=== PATIENT | male | born 1990 | race Caucasian/White ===

== ENCOUNTER 2018-12-25 04:20 | Emergency (ER) | payer MEDICAID, OTHER ==
[2018-12-25] MEDS ORDERED: Albuterol/Ipratropium NEB.SOL* Albuterol 2.5 MG/Ipratropium 0.5 MG 3 ML INH ONE (04:32)
[2018-12-25] MEDS ORDERED: predniSONE TAB* 20 MG PO ONE (04:35)
--- NOTE | 2018-12-25 04:39 | ED ---
Shortness of Breath - HPI Summary HPI Summary: This pt is a 28 Y/O M presenting to [facility] with a CC of SOB since 0000 12/25/18. He states that he has a known allergy to cat dander and was exposed to a cat on 12/24/18. He states that he was wheezing earlier but states that he is currently having difficulty breathing and stated that he has a non-productive cough. He denies any fever, CP, N/V, chills, headaches, substance abuse, and sore throat. He stated no alleviating factor but reported that he took allergy medications without relief. He has a PMHx of cat allergies and denies any asthma. - History of Current Complaint Chief Complaint: EDShortnessOfBreath Time Seen by Provider: 12/25/18 04:28 Hx Obtained From: Patient Onset/Duration: Sudden Onset, Lasting Hours - 4, Still Present Timing: Constant Current Severity: Moderate Dyspnea At: Rest Aggravating Factors: Allergens - cat dander Alleviating Factors: Nothing Associated Signs & Symptoms: Negative - fever, CP, N/V, chills, headaches, substance abuse, and sore throat., Cough (Nonproductive), Wheezing - Allergy/Home Medications Allergies/Adverse Reactions: Allergies Allergy/AdvReac Type Severity Reaction Status Date / Time cat dander Allergy Unknown Verified 12/25/18 04:25 Reaction Details PMH/Surg Hx/FS Hx/Imm Hx Previously Healthy: Yes Endocrine/Hematology History: Denies: Hx Anticoagulant Therapy Cardiovascular History: Denies: Hx Hypertension Infectious Disease History: No Infectious Disease History: Denies: Traveled Outside the [place] in Last 30 Days - Family History Known Family History: Negative: Diabetes - Social History Alcohol Use: Rare Hx Substance Use: No Substance Use Type: Reports: None Hx Tobacco Use: No Smoking Status (MU): Never Smoked Tobacco Review of Systems Positive: Other - NEGATIVE: substance abuse. Negative: Fever, Chills Negative: Sore Throat Negative: Chest Pain Positive: Shortness Of Breath, Cough - non-productive Negative: Vomiting, Nausea Negative: Headache All Other Systems Reviewed And Are Negative: Yes Physical Exam - Summary Physical Exam Summary: Appearance: Well appearing, no pain distress Skin: warm, dry, reflects adequate perfusion Head/face: normal Eyes: EOMI, JOHNNIE ENT: normal Neck: supple, non-tender Respiratory: CTA, breath sounds present Cardiovascular: RRR, pulses symmetrical Abdomen: non-tender, soft Musculoskeletal: normal, strength/ROM intact Neuro: normal, sensory motor intact, A&Ox3 Triage Information Reviewed: Yes Vital Signs On Initial Exam: Initial Vitals Temp Pulse Resp BP Pulse Ox 97.7 F 80 16 152/91 95 12/25/18 04:20 12/25/18 04:20 12/25/18 04:20 12/25/18 04:20 12/25/18 04:20 Vital Signs Reviewed: Yes Diagnostics - Vital Signs Vital Signs Temp Pulse Resp BP Pulse Ox 12/25/18 04:20 97.7 F 80 16 152/91 95 - Laboratory Lab Statement: Any lab studies that have been ordered have been reviewed, and results considered in the medical decision making process. - Radiology CXR Radiology Interpretation Completed By: ED Physician Summary of Radiographic Findings: No acute processes. Pending offical review. Course/Dx - Course Course Of Treatment: This pt is a 28 Y/O M presenting to [facility] with a CC of SOB since 0000 12/25/18. He states that he has a known allergy to cat dander and was exposed to a cat on 12/24/18. His PE found no acute abnormalities. His CXR showed no acute processes. His lab results were reviewed. He will be discharged home with a Dx of bronchospasms. - Diagnoses Differential Diagnosis/HQI/PQRI: Positive: Bronchitis, Pneumonia Provider Diagnoses: Bronchospasm Discharge - Sign-Out/Discharge Documenting (check all that apply): Patient Departure - discharge Patient Received Moderate/Deep Sedation with Procedure: No - Discharge Plan Condition: Stable Disposition: HOME Prescriptions: Albuterol HFA INHALER* [Ventolin HFA Inhaler*] 2 puff INH Q6H PRN #1 mdi MDD 4 PRN Reason: Sob/Wheezing predniSONE TAB* [Deltasone TAB*] 50 mg PO ONCE #4 tab Patient Education Materials: Bronchospasm (ED) Referrals: [facility] [Outside] - 2 Days Additional Instructions: FOLLOW UP WITH [facility] IN 1-3 DAYS AND RETURN TO THE EMERGENCY DEPARTMENT FOR ANY NEW OR WORSENING CONDITIONS. TAKE THE PRESCRIBED MEDICATIONS DIRECTED. - Billing Disposition and Condition Condition: STABLE Disposition: Home - Attestation Statements Document Initiated by Scribe: Yes Documenting Scribe: Aleksey Navarrete Provider For Whom Scribe is Documenting (Include Credential): Chang Galvan MD Scribe Attestation: I, Aleksey Navarrete, scribed for Chang Galvan MD on 12/25/18 at 0608. Scribe Documentation Reviewed: Yes Provider Attestation: The documentation as recorded by the songibeAleksey accurately reflects the service I personally performed and the decisions made by me, Chang Galvan MD Status of Scribe Document: Viewed
[2018-12-25 06:12] VITALS: BP 0/0
== END 2018-12-25 06:12 | disposition home or self-care (01) ==
LOC: ED 04:20
DX: J98.01 Acute bronchospasm (principal)
CPT/HCPCS: 71046; 99282; A9270-GY; J7512